=== PATIENT | female | born 1995 | race Caucasian/White ===

== ENCOUNTER 2018-11-05 16:21 | Emergency (ER) | payer OTHER ==
[~2018-11-05] VITALS: Ht 165.1 cm; Wt 79.4 kg
[~2018-11-05 16:21] MED LIST: KEFLEX500 M1 PO; NAPROSYN500 MG PO; NOHOMEMEDICATIONS; PROMETHAZINE V473 ML PO; PROTONIX40 M2 PO; TESSALON PERLE100 MG PO; WELLBUTRIN 100100 MG PO; XANAX 0.25 MG0.25 MG PO; ZPAK PO
[2018-11-05 16:31] VITALS: BP 122/71
[2018-11-05] MEDS ORDERED: WELLBUTRIN XL150 MG PO (17:18)
--- NOTE | 2018-11-06 09:17 | EKG ---
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1995 Requested By: Deloris Siegel Order Number: [id number] MD: Matty Medrano Measurements Intervals [place] Rate: 77 P: 39 NC: 150 QRS: 68 QRSD: 103 T: 29 QT: 398 QTc: 451 Interpretive Statements Sinus rhythm RSR' in V1 or V2, right VCD No previous ECG available for comparison Electronically Signed On 11-06-2018 9:17:29 CDT by Matty Medrano [email or web address] ��������������������������������������������� <ELECTRONICALLY SIGNED> ���������������������������������������� By: Matty Medrano MD, [facility] ��������������������������������������������� 11/06/18 0917 1644 1644 Matty Medrano MD, FACC /EPI
== END 2018-11-05 17:20 | disposition home or self-care (01) ==
LOC: ER 16:21
DX: F41.9 Anxiety disorder, unspecified (principal); F17.210 Nicotine dependence, cigarettes, uncomplicated; Z79.899 Other long term (current) drug therapy; Z86.73 Personal history of transient ischemic attack (TIA), and cerebral infarction without residual deficits